=== PATIENT | male | born 1960 | race Caucasian/White ===

== ENCOUNTER 2016-10-11 14:00 | Outpatient (RCR) ==
[2016-08-18 13:54] VITALS: BMI 40.7
--- NOTE | 2016-09-20 14:42 | RS.CXNS ---
Date of scheduled appointment: 09/20/16 Type: Cancel (Patients girlfriend left voicemail to cancel appointment. No reason for cancellation given.)
--- NOTE | 2016-09-22 16:24 | RS.OPPTDN ---
Subjective Date of Note: 09/22/16 Visit #: 23 Date of Evaluation: 06/30/16 Payer Source: Medicaid Treatment Diagnosis: Left knee pain, Left knee weakness, gait abnormality Current Subjective/complaints:: Patient reports he feels stronger with walking in parallel bars and with starting stairs today. Back pain continues to be a problem but he is working on exercises as instructed. Pain Assessment - Pain Description Pain Location: Left knee Pain Description: soreness Current Pain Intensity: mod back pain, min to mod pain in the left LE - Heat/Cryotherapy Treatment: Hot Pack ([id number] to the left knee prior to EX and GT. Patient in sitting. ) Interventions - Exercise/Activities/Manual Therapy Exercises/Activities: 15mins Continued passive stretching left knee flexion and extension. Quad sets. SAQ multiple reps. In sitting, contact relax with passive flexion. Sitting green theraband scap retraction 2s/10reps. Leg press 65# multiple reps and 30# left LE 25reps. In standing, multi-gym station 20# scap retraction 2s/10reps. Gait training [id number] Amb in parallel bars with and without weight-bearing on UE's. Began walking up and over stairs with short and medium heigh steps, 8reps. Standing while working on postural correction. Total minutes of Exercise: EX 15mins, GT 25mins Manual Therapy: NA HOME EXERCISE PROGRAM: In sitting, FAQ, Hip flexion, and pillow/ball squeeze for isometric hip adduction. Quad sets. Passive stretching of extension on chair or coffee table. Standing at handrail for hip abd, hip ext, and ham curl. - Charges Total Direct Minutes: 40mins Total Treatment Time: 55mins Procedures billed for this date of service:: HP, EX, GTx2 Assessment: Patient progressing with gait training and begins stairs today. Patient continues to demonstrate good potential to progress toward independent ambulation and PLOF. Short Term Goals Goal #1: Patient independent and complaint with basic HEP. Goal to be met by: 09/19/16 (100%) Progress towards Goal:: Met Goal #2: Pt able to stand 3 minutes to perform activities in department. Goal to be met by: 09/19/16 (100%) Progress towards Goal:: Met Goal #3: Left knee extension to -10 degrees. Goal to be met by: 09/19/16 (70%) Progress towards Goal:: Progressing Goal #4: Pt able to ambulate 60 feet in department with crutches and CGA of 1. 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 Goal to be met by: 10/13/16 Progress towards goal: Progressing Goal #2: Pt to amb. in community level/unlevel surfaces w/ crutches. Goal to be met by: 10/13/16 Progress towards goal: Progressing Goal #3: Score on LE functional scale improved to 30/80. Goal to be met by: 10/13/16 Progress towards goal: Progressing Goal #4: Pt able to stand to perform all selfcare and ADL's as needed. Goal to be met by: 10/13/16 Progress towards goal: Progressing Plan PLAN OF CARE EXPIRES ON:: 10/13/16 ORDER # VISITS AND/OR THROUGH DATE: 10/13/16 PLAN: Continue Plan of Care (Continue and progress with strengthening and gait training to progress functional activity level.)
--- NOTE | 2016-09-27 15:34 | RS.OPPTDN ---
Subjective Date of Note: 09/27/16 Visit #: 24 Date of Evaluation: 06/30/16 Payer Source: Medicaid Treatment Diagnosis: Left knee pain, Left knee weakness, gait abnormality Current Subjective/complaints:: Patient reports he is using his crutches about half the time to be mobile in his home. He has not been able to go up and down steps yet. He reports that he fatigues easily. Pain Assessment - Pain Description Pain Location: Left knee Pain Description: soreness Current Pain Intensity: mod back pain, min pain in the left LE Interventions - Exercise/Activities/Manual Therapy Exercises/Activities: 25mins Exercise. Continued passive stretching left knee flexion and extension. Quad sets. SAQ multiple reps. Leg press 65# multiple reps. In standing, multi-gym station 20# scap retraction 4s/10reps with short breaks. Gait training [id number] Amb in parallel bars with and without weight- bearing on UE's. In standing, practices forward and backward steps with the right LE with FWB on the left. Walking up and over stairs with short and medium heigh steps, 10reps. Standing while working on postural correction. Total minutes of Exercise: EX 25mins, GT 30mins Manual Therapy: NA HOME EXERCISE PROGRAM: In sitting, FAQ, Hip flexion, and pillow/ball squeeze for isometric hip adduction. Quad sets. Passive stretching of extension on chair or coffee table. Standing at handrail for hip abd, hip ext, and ham curl. - Charges Total Direct Minutes: 55mins Total Treatment Time: 55mins Procedures billed for this date of service:: EX2, GT2 Assessment: Patient progressing with gait in department and with crutches part of the time at home. Patient Education: Home Exercise Program Patient demonstrates compliance with HEP?: Yes Short Term Goals Goal #1: Patient independent and complaint with basic HEP. Goal to be met by: 09/19/16 (100%) Progress towards Goal:: Met Goal #2: Pt able to stand 3 minutes to perform activities in department. Goal to be met by: 09/19/16 (100%) Progress towards Goal:: Met Goal #3: Left knee extension to -10 degrees. Goal to be met by: 09/19/16 (70%) Progress towards Goal:: Progressing Goal #4: Pt able to ambulate 60 feet in department with crutches and CGA of 1. 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 Goal to be met by: 10/13/16 Progress towards goal: Progressing Goal #2: Pt to amb. in community level/unlevel surfaces w/ crutches. Goal to be met by: 10/13/16 Progress towards goal: Progressing Goal #3: Score on LE functional scale improved to 30/80. Goal to be met by: 10/13/16 Progress towards goal: Progressing Goal #4: Pt able to stand to perform all selfcare and ADL's as needed. Goal to be met by: 10/13/16 Progress towards goal: Progressing Plan PLAN OF CARE EXPIRES ON:: 10/13/16 ORDER # VISITS AND/OR THROUGH DATE: 10/13/16 PLAN: Continue Plan of Care
--- NOTE | 2016-09-29 16:37 | RS.OPPTDN ---
Subjective Date of Note: 09/29/16 Visit #: 25 Date of Evaluation: 06/30/16 Payer Source: Medicaid Treatment Diagnosis: Left knee pain, Left knee weakness, gait abnormality Current Subjective/complaints:: Patient reports an increase in back pain with standing and walking today due to change in weather. Continues to report he is increasing ambulation with crutches at home. Pain Assessment - Pain Description Pain Location: Left knee Pain Description: soreness Current Pain Intensity: mod+ back pain, min pain in the left LE Interventions - Exercise/Activities/Manual Therapy Exercises/Activities: 28mins Exercise. Continued passive stretching left knee flexion and extension. Quad sets. SAQ multiple reps. Leg press 65# multiple reps and 30# with left. In standing, multi-gym station 20# scap retraction 4s/ 10reps with short breaks. Gait training [id number]. Amb in parallel bars with and without weight-bearing on UE's. In standing, practices correcting posture. Walking up and over stairs with short and medium heigh steps. Walking in department with crutches with CGA. Total minutes of Exercise: EX 28mins, GT 25mins Manual Therapy: NA HOME EXERCISE PROGRAM: In sitting, FAQ, Hip flexion, and pillow/ball squeeze for isometric hip adduction. Quad sets. Passive stretching of extension on chair or coffee table. Standing at handrail for hip abd, hip ext, and ham curl. - Charges Total Direct Minutes: 53mins Total Treatment Time: 53mins Procedures billed for this date of service:: EX2, GT2 Assessment: Patient continues to increase independence in parallel bars. Back pain limited patient activity today. Short Term Goals Goal #1: Patient independent and complaint with basic HEP. Goal to be met by: 09/19/16 (100%) Progress towards Goal:: Met Goal #2: Pt able to stand 3 minutes to perform activities in department. Goal to be met by: 09/19/16 (100%) Progress towards Goal:: Met Goal #3: Left knee extension to -10 degrees. Goal to be met by: 09/19/16 (70%) Progress towards Goal:: Progressing Goal #4: Pt able to ambulate 60 feet in department with crutches and CGA of 1. Goal to be met by: 09/19/16 (50%) Progress towards Goal:: Progressing Rn Telephone Triage Goals Goal #1: Pt knows HEP and to continue exercises after D/C from therapy. Goal to be met by: 10/13/16 Progress towards goal: Progressing Goal #2: Pt to amb. in community level/unlevel surfaces w/ crutches. Goal to be met by: 10/13/16 Progress towards goal: Progressing Goal #3: Score on LE functional scale improved to 30/80. Goal to be met by: 10/13/16 Progress towards goal: Progressing Goal #4: Pt able to stand to perform all selfcare and ADL's as needed. Goal to be met by: 10/13/16 Progress towards goal: Progressing Plan PLAN OF CARE EXPIRES ON:: 10/13/16 ORDER # VISITS AND/OR THROUGH DATE: 10/13/16 PLAN: Continue Plan of Care
--- NOTE | 2016-10-04 16:33 | RS.OPPTDN ---
Subjective Date of Note: 10/04/16 Visit #: 26 Date of Evaluation: 06/30/16 Payer Source: Medicaid Treatment Diagnosis: Left knee pain, Left knee weakness, gait abnormality Current Subjective/complaints:: Patient reports increased pain and swelling at the left lateral knee today. Reports walking more with crutches in his home. States he can get in and out of bathroom with use of crutches. Pain Assessment - Pain Description Pain Location: Left knee Pain Description: soreness Current Pain Intensity: mod+ back pain, mod pain in the left LE Interventions - Exercise/Activities/Manual Therapy Exercises/Activities: 25mins Exercise. Continued passive stretching left knee flexion and extension. Quad sets. SAQ multiple reps. Leg press 45# multiple reps and 60# 3s/10reps. In standing, multi-gym station 20# scap retraction 4s/ 10reps with short breaks. Gait training [id number]. Amb in parallel bars with and without weight-bearing on UE's. In standing, practices correcting posture and marching in place. Walking up and over stepper board with crutches. Walking in department with crutches with CGA. Total minutes of Exercise: EX 25mins, GT 30mins Manual Therapy: NA HOME EXERCISE PROGRAM: In sitting, FAQ, Hip flexion, and pillow/ball squeeze for isometric hip adduction. Quad sets. Passive stretching of extension on chair or coffee table. Standing at handrail for hip abd, hip ext, and ham curl. - Charges Total Direct Minutes: 55mins Total Treatment Time: 55mins Procedures billed for this date of service:: EX2, GT2 Assessment: Continue to progress with ambulation in parallel bars and with crutches, progressing toward safe and independent. Short Term Goals Goal #1: Patient independent and complaint with basic HEP. Goal to be met by: 09/19/16 (100%) Progress towards Goal:: Met Goal #2: Pt able to stand 3 minutes to perform activities in department. Goal to be met by: 09/19/16 (100%) Progress towards Goal:: Met Goal #3: Left knee extension to -10 degrees. Goal to be met by: 09/19/16 (70%) Progress towards Goal:: Progressing Goal #4: Pt able to ambulate 60 feet in department with crutches and CGA of 1. 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 Goal to be met by: 10/13/16 Progress towards goal: Progressing Goal #2: Pt to amb. in community level/unlevel surfaces w/ crutches. Goal to be met by: 10/13/16 Progress towards goal: Progressing Goal #3: Score on LE functional scale improved to 30/80. Goal to be met by: 10/13/16 Progress towards goal: Progressing Goal #4: Pt able to stand to perform all selfcare and ADL's as needed. Goal to be met by: 10/13/16 (75%) Progress towards goal: Progressing Plan PLAN OF CARE EXPIRES ON:: 10/13/16 ORDER # VISITS AND/OR THROUGH DATE: 10/13/16 PLAN: Continue Plan of Care (Progress toward safe and independent ambulation with crutches in home and community.)
--- NOTE | 2016-10-06 16:35 | RS.OPPTDN ---
Subjective Date of Note: 10/06/16 Visit #: 27 Date of Evaluation: 06/30/16 Payer Source: Medicaid Treatment Diagnosis: Left knee pain, Left knee weakness, gait abnormality Current Subjective/complaints:: Patient reports he feels safer on stairs today. Pain Assessment - Pain Description Pain Location: Left knee Pain Description: soreness Current Pain Intensity: mod+ back pain, mod pain in the left LE Interventions - Exercise/Activities/Manual Therapy Exercises/Activities: Exercise 23mins. Continued passive stretching left knee flexion and extension. Quad sets. SAQ 4#, multiple reps. Leg press 45# multiple reps and 60# 3s/10reps. Green theraband for ham stretch, 3s/10reps. Gait training [id number]. Amb in parallel bars with and without weight-bearing on UE's. Side-stepping. In standing, practices correcting posture and marching in place. Walks over stairs, 5 steps x2reps, with CGA to SBA. Walking up and over stepper board with crutches, multiple reps. Shannon is able to go up and down stepper board once with supervision only. Walking in department with crutches with CGA. Total minutes of Exercise: EX 23mins, GT 35mins Manual Therapy: NA HOME EXERCISE PROGRAM: In sitting, FAQ, Hip flexion, and pillow/ball squeeze for isometric hip adduction. Quad sets. Passive stretching of extension on chair or coffee table. Standing at handrail for hip abd, hip ext, and ham curl. - Charges Total Direct Minutes: 58mins Total Treatment Time: 60mins Procedures billed for this date of service:: EXx2, GTx2 Assessment: Patient continues to improve with gait training in parallel bars and with crutches, including stairs and stepper board. Patient will benefit from progressing independence to be functional at home and in community. Patient Education: Home Exercise Program, Home Safety, Activity Modification Short Term Goals Goal #1: Patient independent and complaint with basic HEP. Goal to be met by: 09/19/16 (100%) Progress towards Goal:: Met Goal #2: Pt able to stand 3 minutes to perform activities in department. Goal to be met by: 09/19/16 (100%) Progress towards Goal:: Met Goal #3: Left knee extension to -10 degrees. Goal to be met by: 09/19/16 (70%) Progress towards Goal:: Progressing Goal #4: Pt able to ambulate 60 feet in department with crutches and CGA of 1. Goal to be met by: 09/19/16 (70%) Progress towards Goal:: Progressing Residential Goals Goal #1: Pt knows HEP and to continue exercises after D/C from therapy. Goal to be met by: 10/13/16 Progress towards goal: Progressing Goal #2: Pt to amb. in community level/unlevel surfaces w/ crutches. Goal to be met by: 10/13/16 Progress towards goal: Progressing Goal #3: Score on LE functional scale improved to 30/80. Goal to be met by: 10/13/16 Progress towards goal: Progressing Goal #4: Pt able to stand to perform all selfcare and ADL's as needed. Goal to be met by: 10/13/16 (75%) Progress towards goal: Progressing Plan PLAN OF CARE EXPIRES ON:: 10/13/16 ORDER # VISITS AND/OR THROUGH DATE: 10/13/16 PLAN: Continue Plan of Care
--- NOTE | 2016-10-11 16:27 | RS.OPPTDN ---
Subjective Date of Note: 10/11/16 Visit #: 28 Date of Evaluation: 06/30/16 Payer Source: Medicaid Treatment Diagnosis: Left knee pain, Left knee weakness, gait abnormality Current Subjective/complaints:: Patient states he is walking with crutches in his home more than 50% of the time. Pain Assessment - Pain Description Pain Location: Left knee Pain Description: soreness Current Pain Intensity: mod+ back pain, min to mod pain in the left LE Interventions - Exercise/Activities/Manual Therapy Exercises/Activities: Exercise 15mins. Continued passive stretching left knee flexion and extension. Standing UE cable pulleys, 10# 20reps. In standing, wand for overhead shoulder flexion 10reps and reaching for 2# ball multiple reps. Leg press 45# 2s/10reps reps and 60# 3s/10reps. Gait training [id number]. Amb in parallel bars with and without weight-bearing on UE's. Side-stepping. Works on postural correction and marching in place. Walking up and over stepper board with crutches, multiple reps. Shannon is able to go up and down stepper board once with supervision only. Walking in department with crutches with SBA. Patient is able to take 4 steps to chair from parallel bars with SBA only. Total minutes of Exercise: EX 15mins, GT 35mins Manual Therapy: NA HOME EXERCISE PROGRAM: In sitting, FAQ, Hip flexion, and pillow/ball squeeze for isometric hip adduction. Quad sets. Passive stretching of extension on chair or coffee table. Standing at handrail for hip abd, hip ext, and ham curl. - Charges Total Direct Minutes: 50mins Total Treatment Time: 50mins Procedures billed for this date of service:: EX, GTx2 Assessment: Patient progressing toward safe and independent with ambulation. Patient has met goal of walking 60' with crutches with CGA. Short Term Goals Goal #1: Patient independent and complaint with basic HEP. Goal to be met by: 09/19/16 (100%) Progress towards Goal:: Met Goal #2: Pt able to stand 3 minutes to perform activities in department. Goal to be met by: 09/19/16 (100%) Progress towards Goal:: Met Goal #3: Left knee extension to -10 degrees. Goal to be met by: 09/19/16 (70%) Progress towards Goal:: Progressing Goal #4: Pt able to ambulate 60 feet in department with crutches and CGA of 1. Goal to be met by: 09/19/16 (100%) Progress towards Goal:: Met Intermediate Goals Goal #1: Pt knows HEP and to continue exercises after D/C from therapy. Goal to be met by: 10/13/16 Progress towards goal: Progressing Goal #2: Pt to amb. in community level/unlevel surfaces w/ crutches. Goal to be met by: 10/13/16 Progress towards goal: Progressing Goal #3: Score on LE functional scale improved to 30/80. Goal to be met by: 10/13/16 Progress towards goal: Progressing Goal #4: Pt able to stand to perform all selfcare and ADL's as needed. Goal to be met by: 10/13/16 (75%) Progress towards goal: Progressing Plan PLAN OF CARE EXPIRES ON:: 10/13/16 ORDER # VISITS AND/OR THROUGH DATE: 10/13/16 PLAN: Continue Plan of Care
--- NOTE | 2016-10-13 15:32 | RS.CXNS ---
Date of scheduled appointment: 10/13/16 Type: Cancel (Patients girlfriend calls to cancel patients appointment today. States he cannot make it to therapy today due to the battery being on his scooter.)
--- NOTE | 2016-10-13 16:12 | RS.QUICKDC ---
Discharge from PT Date of Discharge: 10/13/16 Number of Visits: 28 Reason for Discharge: Patient attended 28 sessions and progressed well with gait training. He was able to walk in department with crutches, including over steps, with SBA. He progressed walking in parallel bars and was able to walk a few steps without assistive device to chair with SBA. He was independent with basic exercises. Patient had to cancel last appointment due to battery on scooter again and could not get to bus. Patient benefitted from treatment and was able to increase his functional independence in his home. Patients POC completed at this time. Discharge at this time.
== END 2016-10-18 ==
PROVIDERS: ATTEND Orthopaedic Surgery
DX: Z96.652 Presence of left artificial knee joint (principal); M25.562 Pain in left knee

== ENCOUNTER 2016-11-29 14:54 | Outpatient (CLI) ==
[2016-08-18 13:54] VITALS: BMI 40.7
[2016-11-29 15:08] LABS: HEMATOCRIT 51.9 % (42.0-52.0); HEMOGLOBIN 17.6 g/dl (14.0-18.0); MEAN CORPUSCULAR HEMOGLOBIN 30.4 pg (27.0-31.0); MEAN CORPUSCULAR HGB CONC 33.9 (31.8-35.4); MEAN CORPUSCULAR VOLUME 89.8 fl (80.0-94.0); RED BLOOD COUNT 5.78 10^6/ul (4.70-6.10); WHITE BLOOD COUNT 18.92 K/ul (4.2-10.2)
[2016-11-29 15:33] LABS: ALBUMIN 3.2 g/dL (3.4-5.0); ALBUMIN/GLOBULIN RATIO 0.78; ANION GAP 14.1; BILIRUBIN,TOTAL 0.4 mg/dL (0.00-1.20); BUN/CREATININE RATIO 15.55; CALCIUM 9.2 mg/dL (8.2-10.2); CREATININE 0.9 mg/dL (0.60-1.10); POTASSIUM 4.1 mmol/L (3.5-5.1); TOTAL PROTEIN 7.3 g/dL (6.4-8.2)
== END 2016-11-29 14:55 | disposition home or self-care (01) ==
LOC: LAB 14:54
PROVIDERS: ATTEND Urology
DX: N50.811 Right testicular pain (principal)
CPT/HCPCS: 36415; 80053; 85027; 87086

== ENCOUNTER 2016-12-06 13:24 | Outpatient (CLI) ==
[2016-08-18 13:54] VITALS: BMI 40.7
[2016-12-06 13:50] LABS: BASOPHILS % (AUTO) 0.7 % (0.0-3.0); EOSINOPHILS # (AUTO) 0.2 K/ul (0.0-0.7); EOSINOPHILS % (AUTO) 3.4 % (0.0-7.0); HEMATOCRIT 50.1 % (42.0-52.0); HEMOGLOBIN 17.2 g/dl (14.0-18.0); IMMATURE GRANULOCYTE % (AUTO) 0.7 % (0.0-5.0); LYMPHOCYTES # (AUTO) 2.2 K/uL (0.60-3.4); LYMPHOCYTES % (AUTO) 35.8 (10.0-50.0); MEAN CORPUSCULAR HEMOGLOBIN 29.8 pg (27.0-31.0); MEAN CORPUSCULAR HGB CONC 34.3 (31.8-35.4); MEAN CORPUSCULAR VOLUME 86.8 fl (80.0-94.0); MONOCYTES # (AUTO) 0.6 K/uL (0.4-2.0); MONOCYTES % (AUTO) 9.8 (0-10); NEUTROPHILS # (AUTO) 3.1 K/ul (2.0-6.9); NEUTROPHILS % (AUTO) 49.6; PLATELET COUNT 206 10^3/uL (140-440); RED BLOOD COUNT 5.77 10^6/ul (4.70-6.10); WHITE BLOOD COUNT 6.15 K/ul (4.2-10.2)
== END 2016-12-06 13:25 | disposition home or self-care (01) ==
LOC: LAB 13:24
PROVIDERS: ATTEND Physician Assistant Medical
DX: N45.3 Epididymo-orchitis (principal)
CPT/HCPCS: 36415; 85025

== ENCOUNTER 2017-02-01 11:12 | Outpatient (CLI) ==
[2016-08-18 13:54] VITALS: BMI 40.7
--- NOTE | 2017-02-01 11:57 | DI ---
EXAM: Radiographs, thoracic spine HISTORY: Thoracic degeneration. COMPARISON: None available. Chest radiograph 08/18/2016, 11/02/2009. TECHNIQUE: Three views. FINDINGS: Multiple mild thoracic vertebral compression deformities noted, which demonstrate smooth margins. Alignment is normal. No subluxation identified. Adjacent soft tissues are unremarkable. IMPRESSION: Multiple mild thoracic vertebral compression deformities, which are likely old although age indeterm inate.
--- NOTE | 2017-02-01 11:59 | DI ---
EXAM: CERVICAL SPINE, 3 VIEWS HISTORY: Cervical degeneration. FINDINGS: Cervical spine open mouth, frontal and lateral views. No comparison. Mild degenerative f acet disease with mild anterior osteophytic spurring, the latter mainly at C5/C6. No significant lo ss of intervertebral disc space height. No spondylolisthesis, fracture or loss of vertebral body he ight. No scoliosis or fracture. IMPRESSION: Mild degenerative changes of the cervical spine.
--- NOTE | 2017-02-01 12:00 | DI ---
EXAM: Lumbar spine three views HISTORY: Lumbar degeneration FINDINGS: Compared to 03/10/2008. The bones appear demineralized. There is mild to moderate diffu se degenerative endplate disease. Severe degenerative disc disease L5/S1. Moderate facet arthropat hy lower spine. Subtle scoliosis convex to the left. There is mild to moderate bilateral sacroilia c joint arthropathy. Findings appear similar to that seen previously with slight progression especi ally of the lower facet arthropathy. IMPRESSION: Moderate degenerative changes of the spine slightly progressed since previous exam. No notable acut e fracture or subluxation.
== END 2017-02-01 11:13 | disposition home or self-care (01) ==
LOC: RAD 11:12
PROVIDERS: ATTEND Pain Medicine Interventional Pain Medicine
DX: M47.817 Spondylosis without myelopathy or radiculopathy, lumbosacral region (principal); M47.816 Spondylosis without myelopathy or radiculopathy, lumbar region; M50.31 Other cervical disc degeneration, high cervical region; M51.34 Other intervertebral disc degeneration, thoracic region; M51.35 Other intervertebral disc degeneration, thoracolumbar region

== ENCOUNTER 2017-03-13 14:26 | Emergency (ER) ==
[2017-03-13 14:30] VITALS: BP 135/99; TEMP 99.1; BMI 39.1
--- NOTE | 2017-03-13 15:17 | DI ---
Exam: Three x-rays of the right elbow. Comparison: Left elbow x-rays performed 04/11/2011. Reason for exam: Lateral condylar pain. FINDINGS: There are multiple calcifications seen in the region of the olecranon. No acute fracture or malalignment. No secondary soft tissue changes are seen to suggest an occult injury. Impression: 1. Calcifications seen in the region of the olecranon. The differential is wide and includes chron ic olecranon bursitis, previous trauma, or CPPD. 2. No acute fracture is seen.
--- NOTE | 2017-03-13 16:17 | ED.PDOC ---
General ED Provider: Dr. JORGE LUIS FRANCO Chief Complaint: Elbow Pain/Injury Stated Complaint: right elbow pain Time Seen by Physician: 14:30 Mode of Arrival: Walk-In Information Source: Patient Exam Limitations: No limitations Primary Care Provider: MELISSA LEWIS Nursing and Triage Documentation Reviewed and Agree: Yes Musculoskeletal Complaint Exam - Elbow Pain Complaint/Exam Mechanism of Injury: Reports: No known trauma Onset/Duration: 1 day Symptoms Are: Still present Initial Severity: Moderate Current Severity: Mild Location: Reports: Discrete Character: Reports: Aching Alleviating: Reports: Rest Aggravating: Reports: Movement Associated Signs and Symptoms: Denies: Swelling, Redness, Bruising, Fever, Weakness, Numbness, Tingling Related History: Reports: Similar episode Related Surgical History: Reports: None Tenderness: Present: Lateral Condyle Limited Range of Motion: Present: Flexion, Extension, Pronation, Supination Differential Diagnoses: Closed Fracture, Joint Effusion, Sprain, Strain, Bursitis Review of Systems - Review Of Systems Constitutional: Reports: No symptoms Eyes: Reports: No symptoms Ears, Nose, Mouth, Throat: Reports: No symptoms Respiratory: Reports: No symptoms Cardiac: Reports: No symptoms GI: Reports: No symptoms : Reports: No symptoms Musculoskeletal: Reports: Joint pain (right elbow) Skin: Reports: No symptoms Neurological: Reports: No symptoms Endocrine: Reports: No symptoms Hematologic/Lymphatic: Reports: No symptoms All Other Systems: Reviewed and Negative Past Medical History - Past Medical History Endocrine: Reports: None Cardiovascular: Reports: CAD, Hypertension, A-Fib Respiratory: Reports: None Hematological: Reports: None Gastrointestinal: Reports: None Genitourinary: Reports: None Neuro/Psych: Reports: None Musculoskeletal: Reports: None Cancer: Reports: None (RIGHT FEMUR 30 YEARS AGO DONYA TO BONE DISEASE) Other Pertinent Past Medical History: Osteogenesis Imperfector - Surgical History General Surgical History: Reports: Adenoidectomy, Stent, Orthopedic, Other - Family History Family History: Reports: None - Social History Smoking Status: Former smoker Hx Substance Use: Yes (ALCOHOL IN PAST) Alcohol Screening: None Physical Exam - Physical Exam Appearance: Well-appearing, No pain distress, Well-nourished Eyes: MEE, EOMI, Conjunctiva clear ENT: Ears normal, Nose normal, Oropharynx normal Respiratory: Airway patent, Breath sounds clear, Breath sounds equal, Respirations nonlabored Cardiovascular: RRR, Pulses normal, No rub, No murmur GI/: Soft, Nontender, No masses, Bowel sounds normal, No Organomegaly Musculoskeletal: Limited ROM (right elbow) Skin: Warm, Dry, Normal color Neurological: Sensation intact, Motor intact, Reflexes intact, Cranial nerves intact, Alert, Oriented Psychiatric: Affect appropriate, Mood appropriate Interpretation - Radiology Interpretation Radiology Interpretation By: Radiologist Radiology Results: No acute changes Critical Care Note - Critical Care Note Total Time (mins): 0 Course - Course Orders, Labs, Meds: Orders Category Date Time Status ELBOW, RIGHT MIN 3 VIEWS Stat RADS 03/13/17 14:45 Completed Vital Signs: Temp Pulse Resp BP Pulse Ox 03/13/17 14:26 99.1 F 70 16 135/99 H 93 L Departure - Departure Time of Disposition: 16:17 (with eduardo at bedside went over film provided a copy of report and imaging requested the pt to see his doctor. MRI STRESSED PT HAS HIS OWN PAIN MEDS ) Disposition: HOME SELF-CARE Discharge Problem: Elbow joint pain Instructions: Arthralgia (ED), Elbow Sprain (ED) Condition: Good Pt referred to PMD for follow-up: No Allergies/Adverse Reactions: Allergies No Known Allergies Allergy (Verified 03/13/17 14:32) Home Medications: Ambulatory Orders Aspirin [Aspirin Chewable] 81 mg PO DAILYWM 05/15/13 Diltiazem HCl [Cardizem] 90 mg PO BID 05/15/13 Lorazepam [Ativan] 1 mg PO TID PRN 05/15/13 Metoprolol Tartrate [Lopressor] 25 mg PO DAILY 05/15/13 Ranitidine HCl [Zantac] 150 mg PO QDAC PRN 05/15/13 Potassium Chloride [K-Dur] 20 meq PO BID 08/10/13 Dronedarone HCl [Multaq] 400 mg PO BID 04/18/14 Carisoprodol [Soma] 250 mg PO TID 07/29/16 Morphine Sulfate [Ms Contin] 20 mg PO Q12HR 03/13/17
== END 2017-03-13 16:30 | disposition home or self-care (01) ==
LOC: ED 14:26
DX: M25.521 Pain in right elbow (principal)
CPT/HCPCS: 99282

== ENCOUNTER 2017-08-01 08:38 | Emergency (ER) ==
[2017-08-01 08:47] VITALS: BP 149/102; TEMP 100; BMI 40.7
--- NOTE | 2017-08-01 09:13 | ED.PDOC ---
General ED Provider: Dr. RAMON ARCE JR Chief Complaint: Chest Wall Injury/Pain Stated Complaint: coughed last week pain pop rt ribs-- pain meds unable to breathe lying down--pain to rib-- yellow mucous--relieved sitting --md last week cxr ordered 100 95 20 96% 149/102 06/27. ALCOHOL IN PAST on MS contin on Soma Time Seen by Physician: 09:13 Mode of Arrival: Walk-In Information Source: Patient Exam Limitations: No limitations Primary Care Provider: MELISSA LEWIS Nursing and Triage Documentation Reviewed and Agree: No Review of Systems - Review Of Systems Constitutional: Reports: Chills Eyes: Reports: No symptoms Ears, Nose, Mouth, Throat: Reports: No symptoms Respiratory: Reports: Cough, Short of air, Other Cardiac: Reports: Chest pain (right costal margin to 9th rib) GI: Reports: No symptoms : Reports: No symptoms Musculoskeletal: Reports: Other Skin: Reports: No symptoms Neurological: Reports: No symptoms Endocrine: Reports: No symptoms Hematologic/Lymphatic: Reports: No symptoms All Other Systems: Other Past Medical History - Past Medical History Endocrine: Reports: None Cardiovascular: Reports: CAD, Hypertension, A-Fib, Other (SVT before on meds ) Respiratory: Reports: None Hematological: Reports: None Gastrointestinal: Reports: None Genitourinary: Reports: None Neuro/Psych: Reports: None Musculoskeletal: Reports: None, Other (RIGHT FEMUR 30 YEARS AGO DUE TO BONE DISEASE) Cancer: Reports: None (RIGHT FEMUR 30 YEARS AGO DONYA TO BONE DISEASE) Other Pertinent Past Medical History: Osteogenesis Imperfecta - Surgical History General Surgical History: Reports: Adenoidectomy (19 yr old), Stent (HEART STINTS X2 2009,2011), Orthopedic ( left knee replacement 2013, then 1/2 left knee replacement 04/2016), Other - Family History Family History: Reports: None - Social History Smoking Status: Former smoker Hx Substance Use: Yes (ALCOHOL IN PAST) Alcohol Screening: None Physical Exam - Physical Exam Appearance: Well-appearing, Obese Ill-appearing: Mild Pain Distress: Mild Eyes: MEE, EOMI, Conjunctiva clear ENT: Ears normal, Nose normal, Oropharynx normal Neck: Supple Respiratory: Airway patent (tender right costal margin to spine spine nontender tender posterior 9th rib area), Breath sounds diminished, Rhonchi Cardiovascular: RRR, Pulses normal, No rub, No murmur GI/: Soft, Nontender, No masses, Bowel sounds normal, No Organomegaly Musculoskeletal: Normal strength, ROM intact, No edema, No calf tenderness ( right leg chronic shortening, barrell chest) Skin: Warm, Dry, Normal color Neurological: Sensation intact, Motor intact, Reflexes intact, Cranial nerves intact, Alert, Oriented Psychiatric: Affect appropriate, Mood appropriate Interpretation - Radiology Interpretation Radiology Interpretation By: Radiologist Radiology Results: Negative Exam Interpreted: CXR, Other (ribs without fracture) - EKG Interpretation Time of EKG #1: 09:15 Rate: Normal Rhythm: Sinus Ectopy: None [place]: NL ST Segment: Other (evidence past IMI) Interpretation: nonacute Critical Care Note - Critical Care Note Total Time (mins): 0 Course - Course Hematology/Chemistry: 08/01/17 10:23 08/01/17 10:23 Orders, Labs, Meds: Lab Review 08/01/17 08/01/17 08/01/17 10:23 10:23 10:23 WBC 7.59 RBC 5.43 Hgb 16.6 Hct 46.9 MCV 86.4 MCH 30.6 MCHC 35.4 RDW Coeff of Allyson 13.4 Plt Count 196 Immature Gran % (Auto) 0.4 Neut % (Auto) 70.6 Lymph % (Auto) 20.4 [place] % (Auto) 7.0 Eos % (Auto) 1.3 Baso % (Auto) 0.3 Immature Gran # (Auto) 0.0 Neut # 5.4 Lymph # 1.6 [place] # 0.5 Eos # 0.1 Baso # 0.0 Sodium 140 Potassium 3.8 Chloride 109 H Carbon Dioxide 22 Anion Gap 12.8 BUN 15 Creatinine 0.73 Estimated GFR (MDRD) 111.00 BUN/Creatinine Ratio 20.54 Glucose 123 H Calcium 9.1 Total Bilirubin 0.32 AST 18 ALT 29 Alkaline Phosphatase 83 Total Creatine Kinase 138 CK-MB (CK-2) 1.4 CK-MB (CK-2) % 1.31457 Troponin I 0.0110 B-Natriuretic Peptide 12 Total Protein 7.6 Albumin 3.6 Globulin 4.0 Albumin/Globulin Ratio 0.90 Orders Category Date Time Status EKG-(ED ONLY) Stat CARDIO 08/01/17 09:08 Completed B-TYPE NATRIURETIC PEPTIDE Stat LAB 08/01/17 10:23 Completed BLOOD CULTURE Stat LAB 08/01/17 10:23 Received CBC W/ AUTO DIFF Stat LAB 08/01/17 10:23 Completed COMPREHENSIVE METABOLIC PANEL Stat LAB 08/01/17 10:23 Completed CREATINE KINASE Stat LAB 08/01/17 10:23 Completed TROPONIN I Stat LAB 08/01/17 10:23 Completed Meperidine HCl/Pf [Demerol 25 mg/ml Syringe] MEDS 08/01/17 10:48 Discontinued 25 mg IM ONCE STA Promethazine HCl [Phenergan 25 mg/ml Vial] MEDS 08/01/17 10:48 Discontinued 25 mg IM ONCE STA CHEST, 2 VIEWS PA & LAT Stat RADS 08/01/17 09:08 Completed RIBS, UNILATERAL RIGHT Stat RADS 08/01/17 09:09 Completed Medications Discontinued Medications Generic Name Dose Route Start Last Admin Trade Name Freq PRN Reason Stop Dose Admin Meperidine HCl 25 mg 08/01/17 10:48 08/01/17 11:02 Demerol 25 Mg/Ml Syringe IM 08/01/17 10:49 25 mg ONCE STA Administration Promethazine HCl 25 mg 08/01/17 10:48 08/01/17 11:03 Phenergan 25 Mg/Ml Vial IM 08/01/17 10:49 25 mg ONCE STA Administration Vital Signs: Temp Pulse Resp BP Pulse Ox 08/01/17 08:39 100 F H 95 H 20 149/102 H 96 Departure - Departure Time of Disposition: 12:02 Disposition: HOME SELF-CARE Discharge Problem: Chest wall pain, Chest injury Instructions: Muscle Strain (ED), Thoracic Pain (ED) Condition: Good Pt referred to PMD for follow-up: Yes Additional Instructions: rib strain will decrease usual breathing, need to cough deeply twice a day given history antibiotic should be helpful pain will resolve gradually recheck PMD one week may use Met[place] sparingly no refills return if fever over 101.0 or if worsening Prescriptions: Hydrocodone Bit/Acetaminophen [[place] 5-325] 1 - 2 tab PO Q6HR PRN #12 tablet PRN Reason: pain Sulfamethoxazole/Trimethoprim [Bactrim Ds 800/160 mg] 1 tab PO Q12HR #14 tablet Allergies/Adverse Reactions: Allergies No Known Allergies Allergy (Verified 08/01/17 08:48) Home Medications: Ambulatory Orders Aspirin [Aspirin Chewable] 81 mg PO DAILYWM 05/15/13 Diltiazem HCl [Cardizem] 90 mg PO BID 05/15/13 Lorazepam [Ativan] 1 mg PO TID PRN 05/15/13 Metoprolol Tartrate [Lopressor] 25 mg PO DAILY 05/15/13 Ranitidine HCl [Zantac] 150 mg PO QDAC PRN 05/15/13 Potassium Chloride [K-Dur] 20 meq PO BID 08/10/13 Dronedarone HCl [Multaq] 400 mg PO BID 04/18/14 Carisoprodol [Soma] 250 mg PO TID 07/29/16 Morphine Sulfate [Ms Contin] 20 mg PO Q12HR 03/13/17 Hydrocodone Bit/Acetaminophen [[place] 5-325] 1 - 2 tab PO Q6HR PRN #12 tablet Sulfamethoxazole/Trimethoprim [Bactrim Ds 800/160 mg] 1 tab PO Q12HR #14 tablet 08/01/17
--- NOTE | 2017-08-01 09:47 | DI ---
EXAM: CHEST FRONTAL AND LATERAL VIEWS HISTORY: Cough, right-sided chest pain. COMPARISON: 10/19/2015 FINDINGS: Heart size and mediastinal contour remain within normal limits. No acute infiltrates. Normal vascularity with no pleural fluid or pneumothorax. The bony thorax has no acute finding. IMPRESSION: No acute process.
--- NOTE | 2017-08-01 09:59 | DI ---
EXAM: RIGHT RIBS HISTORY: Cough, rib pain FINDINGS: Right ribs four view. No displaced rib fracture is identified. No bony destruction, pneum othorax or soft tissue finding. IMPRESSION: No displaced rib fracture seen.
[2017-08-01 10:41] LABS: BASOPHILS % (AUTO) 0.3 % (0.0-3.0); EOSINOPHILS # (AUTO) 0.1 K/ul (0.0-0.7); EOSINOPHILS % (AUTO) 1.3 % (0.0-7.0); HEMATOCRIT 46.9 % (42.0-52.0); HEMOGLOBIN 16.6 g/dl (14.0-18.0); IMMATURE GRANULOCYTE % (AUTO) 0.4 % (0.0-5.0); LYMPHOCYTES # (AUTO) 1.6 K/uL (0.60-3.4); LYMPHOCYTES % (AUTO) 20.4 (10.0-50.0); MEAN CORPUSCULAR HEMOGLOBIN 30.6 pg (27.0-31.0); MEAN CORPUSCULAR HGB CONC 35.4 (31.8-35.4); MEAN CORPUSCULAR VOLUME 86.4 fl (80.0-94.0); MONOCYTES # (AUTO) 0.5 K/uL (0.4-2.0); NEUTROPHILS # (AUTO) 5.4 K/ul (2.0-6.9); NEUTROPHILS % (AUTO) 70.6; PLATELET COUNT 196 10^3/uL (140-440); RED BLOOD COUNT 5.43 10^6/ul (4.70-6.10); WHITE BLOOD COUNT 7.59 K/ul (4.2-10.2)
[2017-08-01] MEDS ORDERED: DEMEROL 25 MG/ML SYRINGE IM STA (10:48)
[2017-08-01] MEDS ORDERED: PHENERGAN 25 MG/ML VIAL IM STA (10:48)
[2017-08-01 11:07] LABS: ALBUMIN 3.6 g/dL (3.4-5.0); ALBUMIN/GLOBULIN RATIO 0.9; ANION GAP 12.8; BILIRUBIN,TOTAL 0.32 mg/dL (0.00-1.20); BUN/CREATININE RATIO 20.54; CALCIUM 9.1 mg/dL (8.2-10.2); CREATININE 0.73 mg/dL (0.60-1.10); POTASSIUM 3.8 mmol/L (3.5-5.1); TOTAL PROTEIN 7.6 g/dL (6.4-8.2); TROPONIN I 0.011 ng/ml (0.0000-0.4000)
[2017-08-01 11:25] LABS: CREATINE KINASE MB 1.4 ng/ml (0.0-3.6)
== END 2017-08-01 12:10 | disposition home or self-care (01) ==
LOC: ED 08:38
DX: S29.019A Strain of muscle and tendon of unspecified wall of thorax, initial encounter (principal); R07.89 Other chest pain; B95.7 Other staphylococcus as the cause of diseases classified elsewhere; R06.02 Shortness of breath; R05 Cough; I25.10 Atherosclerotic heart disease of native coronary artery without angina pectoris; I10 Essential (primary) hypertension; Z95.5 Presence of coronary angioplasty implant and graft; Z79.899 Other long term (current) drug therapy
CPT/HCPCS: 36415; 80053; 82550; 82553; 83880; 84484; 85025; 87040; 87070; 87186; 93005; 93010; 96372; 99283

== ENCOUNTER 2018-01-11 15:22 | Outpatient (CLI) ==
--- NOTE | 2018-01-11 16:17 | DI ---
EXAM: Two views of the chest. History: Cough and hemoptysis. Comparison: Chest radiograph 07/22/2017 Findings: Heart size is within normal limits. No focal consolidation. No appreciable pleural fluid and no pneumothorax. There may be bronchial wall thickening. No acute osseous abnormalities. Party Supply Specialist ildefonso compression deformities again seen within the thoracic spine. Impression: Suspect bronchial wall thickening but there is no consolidated pneumonia.
== END 2018-01-11 15:23 | disposition home or self-care (01) ==
LOC: RAD 15:22
PROVIDERS: ATTEND Physician Assistant
DX: R04.2 Hemoptysis (principal)

== ENCOUNTER 2018-02-09 11:20 | Outpatient (RCR) ==
--- NOTE | 2018-02-09 15:56 | RS.OPPTEV2 ---
Date of Note: 02/09/18 Visit #: 1 Date of Evaluation: 02/09/18 Payer Source: Medicaid Treatment Diagnosis: Left knee pain, LE and trunk weakness, gait difficulty History of Condition/Mechanism of Injury:: Mr. Dowd has a history of difficulty with mobility and limited ambulation due to repeated injuries and fractures due to having Osteogenesis Imperfecta. Reports he is going to be moving to a more accessible, safe living environment where he will be able to safely progress with ambulation. Prior Level of Function.....Patient was independent with: ADL's, Self Care, Caregiving, Ambulation/Mobility, Community Integration/Access Level of Function: Currently uses a Power chair in his home and out in the community for transportation. States the powerchair has been safer for him to use in his current living situation. He is able to transfer independently to and from his powerchair. He can stand and ambulate very short distances in the home. Functional Limitations: Sleep, Self Care, ADL's, Reaching, Pushing, Pulling, Lifting, Carrying, Standing, Bending, Squatting, Ambulation, Community Access/ Integration Current Subjective/complaints:: Mr. Dowd states he wants to walk. He wants to get rid of his powerchair and hopes to find a job. Reports the left continues to give him pain. Reports most of the knee pain in on the medial aspect of the joint. States the pain and stability of the knee varies each time he is on his feet. He has a walker at home, but he prefers to use crutches. He would like to ambulate with just a straight cane. Reports constant burngin in the toes of the left foot. States the left toes are hypersensitive. He has been going to the gym for 2-3 weeks to strengthen his arms and to lose weight. States he has gained 50 lbs since he has quit smoking. He currently has a four year old grandchild in his home. States he is unable to walk if his grandchild is around because he is too afraid that he will cause him to fall. He will only attempt short distances if the grandchild is asleep. He has difficulty maintaining a standing position to complete ADL's such as shaving, dressing, etc. He feels this is his opportunity to regain his ability to walk and gain more functional independence. Treatment Side (optional): Left Medical History Medical History: Hypertension, COPD, Arthritis, Emphysema Medical History Comments:: Osteogenesis imperfecta, Multiple fractures:6 previous fractures to the left LE, 22 fractures to the right LE. Surgical pinning of bilateral hip joints. Left RTC injury. Left TKA 07/30/14,Patient underwent left TKA on 05/18/16. Smoking Status: Former smoker (quit recently) Hx Home Medications: Aspirin,diltiazem,metoprolol,morphine Er 15 mg Patient's Goals: His goal is to ambulate functional distances independently. Pain Assessment - Pain Description Pain Location: left knee Pain Description: Burning, Sharp, Aching Current Pain Intensity: 8/10 Worst Pain Intensity: 10/10 Functional Outcome Measure LE Functional Scale: 9 (80=88.75% impairment) - G Codes & Severity Modifier G Codes & Modifier: NA Source of G Code score: NA Observation - Observation Inspection: Patient presents to department via power wheelchair. He presents with straight cane. Right shoe is built up significantly for leg length discrepancy. Presents with neoprene elbow supports bilaterally. Posture: Forward Head, Rounded Shoulders, Decreased Lumbar Lordosis Comments: Slight flexion maintained at bilateral hips in standing. Gait - Gait Pattern Gait Comments: Patient ambulates with CGA of one and a straight cane in the right hand, 30 feet before having to sit down due to left knee and low back pain. During ambulation, he exhibits bilateral trunk lean with LE advancement. Demonstrates decreased bilateral hip and knee flexion during swing phase. Stance phase on the left LE is less than the right. Slows down and is more unsteady when turning around. Transfers sit to stand independently from power chair. General Muscle Strength: Trunk strength 4/5. - Left Knee ROM Left Knee Extension: -22 degrees from full extension Left Knee Flexion: 60 (degrees actively) Knee ROM Limitations: Soft Tissue Tightness, Contracture - Left Knee Strength Left Knee Extension: 4- Good- Left Knee Flexion: 4- Good- Comments: Left hip 4/5 throughout. - Right Knee Strength Comments: Right hip 4/5 throughout. Sensation - Sensation Comments: Reports toes of the left foot are hypersensitive and states they burn constantly. Reports intact sensation to light touch to bilateral feet during evaluation. Balance - Sitting Balance Static Sitting Balance: Normal Dynamic Sitting Balance: Normal - Standing Balance Static Standing Balance: Fair Dynamic Standing Balance: Fair (+) Interventions - Exercise/Activities/Manual Therapy Exercises/Activities: NA Manual Therapy: NA HOME EXERCISE PROGRAM: NA - Charges Timed Code Treatment Minutes: NA Total Treatment Time: 55 mins Procedures billed for this date of service:: EVAL Med EVALUATION COMPLEXITY LEVEL EVALUATION COMPLEXITY LEVEL: HISTORY: Medium (Osteogenesis imperfecta, Multiple fractures:6 previous fractures to the left LE, 22 fractures to the right LE. Surgical pinning of bilateral hip joints. Left RTC injury. Left TKA 07/30/14, Patient underwent left TKA on 05/18/16.), EXAM OF BODY SYSTEMS: Medium (ROM, MS, balance, sensation, pain in left knee and back), CLINICAL PRESENTATION: Medium, CLINICAL DECISION MAKING: Medium Assessment Assessment: Patient presents to therapy with diagnosis of Osteogenesis Imperfecta and gait difficulty. He reports wanting to be more independent with his gait and functional ability. He presents with limited functional ambulation due to left knee pain, back pain, and weakness. He shows potential to become more independent with his ambulation and progress away from the power wheelchair with skilled therapy. Patient Education: Education of diagnosis, Body/Joint mechanics, Home Safety, Activity Modification, Education of Plan of Care Rehab Potential: Good Short Term Goals Goal #1: Patient independent and complaint with basic HEP. Goal to be met by: 02/23/18 Goal #2: Standing static balance improved to Fair +. Goal to be met by: 02/23/18 Goal #3: Bilateral hip strength 4+/5. Goal to be met by: 02/23/18 Goal #4: Pt able to ambulate [address] cane and CGA of 1. Goal to be met by: 02/23/18 (100%) Aromatherapist Goals Goal #1: Pt knows HEP and to continue exercises after D/C from therapy. Goal to be met by: 03/23/18 Goal #2: Pt to amb. functional distances with st. cane and good safety. Goal to be met by: 03/23/18 Goal #3: Score on LE functional scale improved to 29/80. Goal to be met by: 03/23/18 Goal #4: Pt able to stand to perform all selfcare and light ADL's as needed. Goal to be met by: 03/23/18 Plan - Treatment to be Provided Procedures: Therapeutic Exercises, Therapeutic Activity, Gait Training, Neuromuscular Rehab, Manual Therapy, Patient Education Modalities: Electrical Stimulation, Class IV Laser, Cryotherapy, Hot Packs Other:: Modalities if necessary for left knee pain/ROM. Main focus to be on exercise/gait training. - Treatment Plan Frequency: 3 X week Duration: 6 weeks ORDER # VISITS AND/OR THROUGH DATE: 03/23/18 - Treatment Code (1) Gait difficulty Code(s): R26.9 - UNSPECIFIED ABNORMALITIES OF GAIT AND MOBILITY Comments: R26.9 (2) Left knee pain Code(s): M25.562 - PAIN IN LEFT KNEE Qualifiers: Chronicity: chronic Qualified Code(s): M25.562 - Pain in left knee; G89.29 - Other chronic pain (3) Generalized muscle weakness Code(s): M62.81 - MUSCLE WEAKNESS (GENERALIZED) Comments: Bilateral LE hip weakness (4) Osteogenesis imperfecta Code(s): Q78.0 - OSTEOGENESIS IMPERFECTA Comments: Q78.0
== END 2018-02-15 23:59 | disposition short-term general hospital (02) ==
DX: Q78.0 Osteogenesis imperfecta (principal)

== ENCOUNTER 2018-03-03 14:47 | Emergency (ER) ==
[2018-03-03 14:51] VITALS: BP 130/89; TEMP 98.7; BMI 42.3
--- NOTE | 2018-03-03 16:23 | ED.PDOC ---
General ED Provider: Dr. 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 Ran out due to being in the hospital with family members. has an Apt in 3 weeks. Unable to tolorate acitivity without pain medication due to his chornic condition. Time Seen by Physician: 16:05 Mode of Arrival: Walk-In Information Source: Patient Primary Care Provider: MELISSA LEWIS Nursing and Triage Documentation Reviewed and Agree: Yes Reviewed sepsis parameters & appropriate labs ordered?: No System Inflammatory Response Syndrome: Not Applicable Sepsis Protocol: For patient's 13 years and over: Temp is 96.8 and below OR 101 and greater Pulse >90 BPM Resp >20/minute Acutely Altered Mental Status Are patient's symptoms suggestive of a new infection, such as: -Pneumonia -Skin, Soft Tissue -Endocarditis -UTI -Bone, Joint Infection -Implantable Device -Acute Abdominal Infection -Wound Infection -Meningitis -Blood Stream Catheter Infection -Unknown Review of Systems - Review Of Systems Constitutional: Reports: No symptoms Respiratory: Reports: No symptoms Cardiac: Reports: No symptoms GI: Reports: No symptoms Musculoskeletal: Reports: Back pain, Joint pain, Muscle pain All Other Systems: Reviewed and Negative Past Medical History - Past Medical History Endocrine: Reports: None Cardiovascular: Reports: CAD, Hypertension, A-Fib, Other (SVT before on meds ) Respiratory: Reports: None Hematological: Reports: None Gastrointestinal: Reports: None Genitourinary: Reports: None Neuro/Psych: Reports: None Musculoskeletal: Reports: None, Other (RIGHT FEMUR 30 YEARS AGO DUE TO BONE DISEASE) Cancer: Reports: None (RIGHT FEMUR 30 YEARS AGO DONYA TO BONE DISEASE) Other Pertinent Past Medical History: Osteogenesis Imperfecta - Surgical History General Surgical History: Reports: Adenoidectomy (19 yr old), Stent (HEART STINTS X2 2009,2011), Orthopedic ( left knee replacement 2013, then 1/2 left knee replacement 04/2016), Other - Family History Family History: Reports: None - Social History Smoking Status: Former smoker Hx Substance Use: Yes (ALCOHOL IN PAST) Alcohol Screening: None Physical Exam - Physical Exam Appearance: Ill-appearing Pain Distress: Moderate Neck: Supple Respiratory: Airway patent, Breath sounds clear, Breath sounds equal, Respirations nonlabored Cardiovascular: RRR, Pulses normal, No rub, No murmur GI/: Soft, Nontender, No masses, Bowel sounds normal, No Organomegaly Musculoskeletal: Limited ROM (with multiple deformities ) Skin: Warm, Dry Neurological: Sensation intact, Motor intact, Alert, Oriented Psychiatric: Anxious Critical Care Note - Critical Care Note Total Time (mins): 0 Course - Course Vital Signs: Temp Pulse Resp BP Pulse Ox 03/03/18 14:47 98.7 F 83 16 130/89 95 Departure - Departure Time of Disposition: 16:20 Disposition: HOME SELF-CARE Discharge Problem: Chronic pain disorder, Osteogenesis imperfecta Instructions: Chronic Pain (ED) Condition: Stable Pt referred to PMD for follow-up: Yes IPMP verified?: No (Given only 7 day supply ) Additional Instructions: Follow up with PCP or Pain management clinic in 3-5 days Take Medications as prescribed Take over the counter pain medication. Prescriptions: Hydrocodone/Acetaminophen [[place] 10-325 Tablet] 1 each PO TID #21 tablet Allergies/Adverse Reactions: Allergies No Known Allergies Allergy (Verified 03/03/18 14:51) Home Medications: Ambulatory Orders Aspirin [Aspirin Chewable] 81 mg PO DAILYWM 05/15/13 Diltiazem HCl [Cardizem] 90 mg PO BID 05/15/13 Potassium Chloride [K-Dur] 20 meq PO BID 08/10/13 Dronedarone HCl [Multaq] 400 mg PO BID 04/18/14 Carisoprodol [Soma] 250 mg PO BID 07/29/16 Morphine Sulfate [Ms Contin] 20 mg PO Q12HR 03/13/17 Hydrocodone/Acetaminophen [[place] 10-325 Tablet] 1 each PO TID #21 tablet Disposition Discussed With: Patient
== END 2018-03-03 16:31 | disposition home or self-care (01) ==
LOC: ED 14:47
DX: G89.29 Other chronic pain (principal); Q78.0 Osteogenesis imperfecta
CPT/HCPCS: 99282

== ENCOUNTER 2018-03-12 14:00 | Outpatient (RCR) ==
--- NOTE | 2018-02-16 16:26 | RS.OPPTDN ---
Subjective Date of Note: 02/16/18 Visit #: 2 Date of Evaluation: 02/09/18 Payer Source: Medicaid Treatment Diagnosis: Left knee pain, LE and trunk weakness, gait difficulty Current Subjective/complaints:: Patient reports he would like to progress to safe ambulation with cane. He has a fear of falls. Reports back pain and LE weakness is limiting him. Pain Assessment - Pain Description Pain Location: left knee and lowback Interventions - Exercise/Activities/Manual Therapy Exercises/Activities: Standing marching and hip abduction. Lateral step-ups onto right LE. Standing reaching and green theraband for scapular retraction. Gait Training in department with straight cane. Frequent cues for increase stride length and correct posture. Worked on cane placement and balanced weight shift. Patient walks 20-25' x 5reps with min assist and over short step 2reps with mod assist. Total minutes of Exercise: EX 15mins/GT 23mins Manual Therapy: NA HOME EXERCISE PROGRAM: NA - Charges Timed Code Treatment Minutes: 38mins Total Treatment Time: 45mins Procedures billed for this date of service:: GTx2, EX Assessment: Patient reporting back pain and quick fatigue with standing and walking. He is motivated to work on strengthening and progress toward safe and independent ambulation with AAD. Patient Education: Home Exercise Program, Home Safety, Activity Modification Patient demonstrates compliance with HEP?: Yes Short Term Goals Goal #1: Patient independent and complaint with basic HEP. Goal to be met by: 02/23/18 Progress towards Goal:: Progressing Goal #2: Standing static balance improved to Fair +. Goal to be met by: 02/23/18 Goal #3: Bilateral hip strength 4+/5. Goal to be met by: 02/23/18 Goal #4: Pt able to ambulate [address] cane and CGA of 1. Goal to be met by: 02/23/18 (100%) Fpc Goals Goal #1: Pt knows HEP and to continue exercises after D/C from therapy. Goal to be met by: 03/23/18 Goal #2: Pt to amb. functional distances with st. cane and good safety. Goal to be met by: 03/23/18 Goal #3: Score on LE functional scale improved to 29/80. Goal to be met by: 03/23/18 Goal #4: Pt able to stand to perform all selfcare and light ADL's as needed. Goal to be met by: 03/23/18 Plan PLAN OF CARE EXPIRES ON:: 03/23/18 ORDER # VISITS AND/OR THROUGH DATE: 03/23/18 PLAN: Progress strengthening and gait training, working toward safe and independent ambulation for functional activities.
--- NOTE | 2018-02-20 15:39 | RS.OPPTDN ---
Subjective Date of Note: 02/20/18 Visit #: 3 Date of Evaluation: 02/09/18 Payer Source: Medicaid Treatment Diagnosis: Left knee pain, LE and trunk weakness, gait difficulty Current Subjective/complaints:: Patient reports his back pain seems to limit him. States he is going to the gym for upper body strengthening, but does not feel like he is making progress. Pain Assessment - Pain Description Pain Location: left knee and lowback Current Pain Intensity: 5/10 left knee, 4/10 back Interventions - Exercise/Activities/Manual Therapy Exercises/Activities: Standing marching and hip abduction. Lateral step-ups onto right LE. Standing reaching, ball toss, chest pass, and green theraband for scapular retraction. Sitting overhead ball toss while sitting on edge of chair for trunk strengthening. Gait Training in department with straight cane. Frequent cues for increase stride length and correct posture. Worked on cane placement and balanced weight shift. Patient walks 20-25' x 5reps with min assist. Gait over short step, increased to 6reps with cane, handrail, and min assist of 1. Total minutes of Exercise: EX 18mins, GT 28mins Manual Therapy: NA HOME EXERCISE PROGRAM: NA - Charges Timed Code Treatment Minutes: 46mins Total Treatment Time: 48mins Procedures billed for this date of service:: EX, GT2 Assessment: Patient progressing with gait, including steps. Patient Education: Home Exercise Program Patient demonstrates compliance with HEP?: Yes Short Term Goals Goal #1: Patient independent and complaint with basic HEP. Goal to be met by: 02/23/18 Progress towards Goal:: Progressing Goal #2: Standing static balance improved to Fair +. Goal to be met by: 02/23/18 Progress towards Goal:: Progressing Goal #3: Bilateral hip strength 4+/5. Goal to be met by: 02/23/18 Goal #4: Pt able to ambulate [address] cane and CGA of 1. Goal to be met by: 02/23/18 (100%) [facility] Goals Goal #1: Pt knows HEP and to continue exercises after D/C from therapy. Goal to be met by: 03/23/18 Goal #2: Pt to amb. functional distances with st. cane and good safety. Goal to be met by: 03/23/18 Goal #3: Score on LE functional scale improved to 29/80. Goal to be met by: 03/23/18 Goal #4: Pt able to stand to perform all selfcare and light ADL's as needed. Goal to be met by: 03/23/18 Plan PLAN OF CARE EXPIRES ON:: 03/23/18 ORDER # VISITS AND/OR THROUGH DATE: 03/23/18 PLAN: Progress with strengthening, balance, and ambulation.
--- NOTE | 2018-02-26 09:06 | RS.OPPTDN ---
Subjective Date of Note: 02/23/18 Visit #: 4 Date of Evaluation: 02/09/18 Payer Source: Medicaid Treatment Diagnosis: Left knee pain, LE and trunk weakness, gait difficulty Current Subjective/complaints:: Patient reports he has tried to practice standing with cane at home. Reports he feels more confident today. Interventions - Exercise/Activities/Manual Therapy Exercises/Activities: Standing marching and hip abduction. Lateral step-ups onto right LE. Standing reaching, ball toss, chest pass, and green theraband for scapular retraction. Standing on foam for balance, then marching. Sitting overhead ball toss while sitting on edge of chair for trunk strengthening. Gait Training in department with straight cane. Frequent cues for increase stride length and correct posture. Worked on cane placement and balanced weight shift. Patient walks 25' x 6reps with min to CGA. Gait over short step with cane and handrail, and min assist of 1, 6reps total. Total minutes of Exercise: GT 29mins, EX 17mins Manual Therapy: NA HOME EXERCISE PROGRAM: NA - Objective Findings Observations,measurements,etc.: Standing weight-shift and marching at kitchen counter - Charges Timed Code Treatment Minutes: 46mins Total Treatment Time: 50mins Procedures billed for this date of service:: GTx2, EX Assessment: Patient progressing with gait and balance activity. Patient Education: Home Exercise Program Patient demonstrates compliance with HEP?: Yes Short Term Goals Goal #1: Patient independent and complaint with basic HEP. Goal to be met by: 02/23/18 Progress towards Goal:: Progressing Goal #2: Standing static balance improved to Fair +. Goal to be met by: 02/23/18 Progress towards Goal:: Progressing Goal #3: Bilateral hip strength 4+/5. Goal to be met by: 02/23/18 Goal #4: Pt able to ambulate [address] cane and CGA of 1. Goal to be met by: 02/23/18 Progress towards Goal:: Progressing Corporate Recruiter Goals Goal #1: Pt knows HEP and to continue exercises after D/C from therapy. Goal to be met by: 03/23/18 Progress towards goal: Progressing Goal #2: Pt to amb. functional distances with st. cane and good safety. Goal to be met by: 03/23/18 Goal #3: Score on LE functional scale improved to 29/80. Goal to be met by: 03/23/18 Goal #4: Pt able to stand to perform all selfcare and light ADL's as needed. Goal to be met by: 03/23/18 Plan PLAN OF CARE EXPIRES ON:: 03/23/18 ORDER # VISITS AND/OR THROUGH DATE: 03/23/18 PLAN: Progress with gait training, strengtheing, and balance work to increase patients functional independence.
--- NOTE | 2018-02-27 11:59 | RS.CXNS ---
Date of scheduled appointment: 02/27/18 Type: Cancel (Patients girlfriend calls to cancel appointment. Reports patient cannot make his appointment today. Will keep his appointment for later this week.)
--- NOTE | 2018-03-01 16:11 | RS.OPPTDN ---
Subjective Date of Note: 03/01/18 Visit #: 5 Date of Evaluation: 02/09/18 Payer Source: Medicaid Treatment Diagnosis: Left knee pain, LE and trunk weakness, gait difficulty Current Subjective/complaints:: Patient reports he feels his LE's are getting stronger. States left knee pain is limiting his mobility. He continues to have a fear of falls due left knee feeling like it will buckle. Pain Assessment - Pain Description Pain Location: Left knee, back Current Pain Intensity: moderate with standing, weight-bearing Interventions - Exercise/Activities/Manual Therapy Exercises/Activities: Standing marching and hip abduction. Lateral step-ups onto right LE. Standing reaching, ball toss, chest pass, and baseball throws. In sitting, blue theraband for left knee ham curl, 4# cuff weight for resist LAQ. Sitting overhead ball toss while sitting on edge of chair for trunk strengthening. Gait Training in department with straight cane. Frequent cues for equal stride, safety with turns, and correct posture. Patient walks 25' x 6reps with min to CGA. Gait over short step with cane and handrail, and min assist of 1, 6reps total. Total minutes of Exercise: EX 22mins, GT 29mins Manual Therapy: NA HOME EXERCISE PROGRAM: NA - Charges Timed Code Treatment Minutes: 51mins Total Treatment Time: 51mins Procedures billed for this date of service:: EX, GTx2 Assessment: Patient demos improvement with gait sequence and increased standing. He will need to continue strengthening to increase his safety and independence with functional mobility and ambulation. Patient Education: Body/Joint mechanics, Home Exercise Program, Activity Modification Patient demonstrates compliance with HEP?: Yes Short Term Goals Goal #1: Patient independent and complaint with basic HEP. Goal to be met by: 02/23/18 Progress towards Goal:: Progressing Goal #2: Standing static balance improved to Fair +. Goal to be met by: 02/23/18 Progress towards Goal:: Progressing Goal #3: Bilateral hip strength 4+/5. Goal to be met by: 02/23/18 Goal #4: Pt able to ambulate [address] cane and CGA of 1. Goal to be met by: 02/23/18 Progress towards Goal:: Progressing Cashier Goals Goal #1: Pt knows HEP and to continue exercises after D/C from therapy. Goal to be met by: 03/23/18 Progress towards goal: Progressing Goal #2: Pt to amb. functional distances with st. cane and good safety. Goal to be met by: 03/23/18 Progress towards goal: Progressing Goal #3: Score on LE functional scale improved to 29/80. Goal to be met by: 03/23/18 Goal #4: Pt able to stand to perform all selfcare and light ADL's as needed. Goal to be met by: 03/23/18 Progress towards goal: Progressing Plan PLAN OF CARE EXPIRES ON:: 03/23/18 ORDER # VISITS AND/OR THROUGH DATE: 03/23/18 PLAN: Progress strengthening and gait activities to increase patients safety and functional independence.
--- NOTE | 2018-03-06 16:24 | RS.OPPTDN ---
Subjective Date of Note: 03/06/18 Visit #: 6 Date of Evaluation: 02/09/18 Payer Source: Medicaid Treatment Diagnosis: Left knee pain, LE and trunk weakness, gait difficulty Current Subjective/complaints:: Patient report he has been walking short distances with cane. States he is feels much stronger and has more confidence. Pain Assessment - Pain Description Pain Location: left knee Current Pain Intensity: moderate Interventions - Exercise/Activities/Manual Therapy Exercises/Activities: Standing marching and hip abduction. Lateral step-ups onto right LE. In sitting, blue theraband for left knee ham curl, increased to 5# cuff weight for resist LAQ. Sitting overhead ball toss while sitting on edge of chair for trunk strengthening. Standing 3# wand overhead flexion, chest passing, and baseball throw to target, all 2s/10reps each. Gait Training in department and in hallway with straight cane. Cues for equal stride, safety with turns, and correct posture. Gait over short step with cane and handrail, and min to CGA of 1, 8reps total. (Greatest distance approx 50') Total minutes of Exercise: EX 27mins, GT 31mins Manual Therapy: NA HOME EXERCISE PROGRAM: NA - Charges Timed Code Treatment Minutes: 58mins Total Treatment Time: 58mins Procedures billed for this date of service:: EXx2, GTx2 Assessment: Patient progressing with standing balance and ambulation with cane. Paitent progressing toward independent gait. Patient Education: Home Exercise Program, Home Safety, Activity Modification Patient demonstrates compliance with HEP?: Yes Short Term Goals Goal #1: Patient independent and complaint with basic HEP. Goal to be met by: 02/23/18 Progress towards Goal:: Partially Met Goal #2: Standing static balance improved to Fair +. Goal to be met by: 02/23/18 Progress towards Goal:: Partially Met Goal #3: Bilateral hip strength 4+/5. Goal to be met by: 02/23/18 Progress towards Goal:: Progressing Goal #4: Pt able to ambulate [address] cane and CGA of 1. Goal to be met by: 02/23/18 Progress towards Goal:: Partially Met Correction Goals Goal #1: Pt knows HEP and to continue exercises after D/C from therapy. Goal to be met by: 03/23/18 Progress towards goal: Progressing Goal #2: Pt to amb. functional distances with st. cane and good safety. Goal to be met by: 03/23/18 Progress towards goal: Progressing Goal #3: Score on LE functional scale improved to 29/80. Goal to be met by: 03/23/18 Goal #4: Pt able to stand to perform all selfcare and light ADL's as needed. Goal to be met by: 03/23/18 Progress towards goal: Progressing Plan PLAN OF CARE EXPIRES ON:: 03/23/18 ORDER # VISITS AND/OR THROUGH DATE: 03/23/18 PLAN: Continue and progress toward safe and independent with ambulation with AAD.
--- NOTE | 2018-03-08 14:55 | RS.CXNS ---
Date of scheduled appointment: 03/08/18 Type: Cancel (Patient called to cancel appointment. Has appointment with his doctor today.)
--- NOTE | 2018-03-12 15:56 | RS.OPPTDN ---
Subjective Date of Note: 03/12/18 Visit #: 7 Date of Evaluation: 02/09/18 Payer Source: Medicaid Treatment Diagnosis: Left knee pain, LE and trunk weakness, gait difficulty Current Subjective/complaints:: Patient reports he would like to walk on treadmill. Pain Assessment - Pain Description Pain Location: left knee, lowback Interventions - Exercise/Activities/Manual Therapy Exercises/Activities: Standing marching and hip abduction. Lateral step-ups onto right LE. Standing 7# wand overhead flexion, chest passing, and baseball throw to target, and overhead passing. Black theraband on wand for resistive scap retraction. Gait Training in department and in hallway with straight cane. Cues for equal stride, safety with turns, and correct posture. Gait over short step with cane and handrail, and CGA of 1. Assisted onto treadmill for slow paced ambulation at 0.5mph, 2sets/1minute, patient works on equal stride length and height. Total minutes of Exercise: GT 32mins, EX 16mins Manual Therapy: NA HOME EXERCISE PROGRAM: NA - Charges Timed Code Treatment Minutes: 48mins Total Treatment Time: 48mins Procedures billed for this date of service:: GTx2, EX Assessment: Patient progressing well with gait training and standing/ strengthening exercises. Patient Education: Body/Joint mechanics, Home Exercise Program Patient demonstrates compliance with HEP?: Yes Short Term Goals Goal #1: Patient independent and complaint with basic HEP. Goal to be met by: 02/23/18 Progress towards Goal:: Met Goal #2: Standing static balance improved to Fair +. Goal to be met by: 02/23/18 Progress towards Goal:: Partially Met Goal #3: Bilateral hip strength 4+/5. Goal to be met by: 02/23/18 Progress towards Goal:: Progressing Goal #4: Pt able to ambulate [address] cane and CGA of 1. Goal to be met by: 02/23/18 Progress towards Goal:: Partially Met Teacher Private Goals Goal #1: Pt knows HEP and to continue exercises after D/C from therapy. Goal to be met by: 03/23/18 Progress towards goal: Progressing Goal #2: Pt to amb. functional distances with st. cane and good safety. Goal to be met by: 03/23/18 Progress towards goal: Progressing Goal #3: Score on LE functional scale improved to 29/80. Goal to be met by: 03/23/18 Goal #4: Pt able to stand to perform all selfcare and light ADL's as needed. Goal to be met by: 03/23/18 Progress towards goal: Progressing Plan PLAN OF CARE EXPIRES ON:: 03/23/18 ORDER # VISITS AND/OR THROUGH DATE: 03/23/18 PLAN: Progress strengthening and gait training, working toward safe and independent.
--- NOTE | 2018-03-15 16:06 | RS.CXNS ---
Date of scheduled appointment: 03/15/18 Type: Cancel (Patient called to say he was still at an appointment with the Hydraulic Jack Adjuster. Reschedules for next week.)
== END 2018-03-17 23:59 ==
DX: Q78.0 Osteogenesis imperfecta (principal); M25.562 Pain in left knee; G89.29 Other chronic pain; R26.9 Unspecified abnormalities of gait and mobility; M62.81 Muscle weakness (generalized)

== ENCOUNTER 2018-03-23 10:16 | Outpatient (RCR) ==
--- NOTE | 2018-03-22 11:58 | RS.CXNS ---
Date of scheduled appointment: 03/22/18 Type: Cancel Reason for Cancel/NS: Patient reschedules. No reason given.
--- NOTE | 2018-03-23 10:56 | RS.OPPTDN ---
Subjective Date of Note: 03/23/18 Visit #: 8 Date of Evaluation: 02/09/18 Payer Source: Medicaid Treatment Diagnosis: Left knee pain, LE and trunk weakness, gait difficulty Current Subjective/complaints:: Patient says he has been able to walk around his nephew's home this week using crutches only. He says he is able to perform more abdominal exercises at the local gym and trying to also lose weight. He does c/o increased pain today in his L knee and low back due to the rain today. He maintains motivation to walk and build strength while also relying on his power chair less and less. Pain Assessment - Pain Description Pain Location: L knee and low back due to recent rain Interventions - Exercise/Activities/Manual Therapy Exercises/Activities: Standing marching and hip abduction. Lateral step-ups onto right LE. Standing 7# wand overhead flexion, chest passing, and baseball throw to target, and overhead passing (standing at railing). Black theraband on wand for resistive scap retraction (sitting). Gait Training in department and in hallway with straight cane. Cues for equal stride, safety with turns, and correct posture. Gait over short step with cane and handrail, and CGA of 1. Patient amb with SC to/from treadmill (30'). Assisted onto treadmill for slow paced ambulation at 0.5mph, 2sets/1minute, patient works on equal stride length and height. Reassessed goals. Total minutes of Exercise: 42 Manual Therapy: NA HOME EXERCISE PROGRAM: NA - Charges Timed Code Treatment Minutes: 42 Total Treatment Time: 42 Procedures billed for this date of service:: ex2, gt1 Assessment: Patient has met all STG at this point and progressing with LTG. He continues to be motivated to amb and is eager to completely abstain from using his power chair. He continues to work at local gym and also actively trying to lose weight to assist with his back pain. Patient Education: Body/Joint mechanics, Home Exercise Program, Home Safety, Education of Plan of Care Patient demonstrates compliance with HEP?: Yes Short Term Goals Goal #1: Patient independent and complaint with basic HEP. Goal to be met by: 02/23/18 Progress towards Goal:: Met Goal #2: Standing static balance improved to Fair +. Goal to be met by: 02/23/18 Progress towards Goal:: Met Comments:: tested today Goal #3: Bilateral hip strength 4+/5. Goal to be met by: 02/23/18 Progress towards Goal:: Met Comments:: measured today Goal #4: Pt able to ambulate [address] cane and CGA of 1. Goal to be met by: 02/23/18 Progress towards Goal:: Met Comments:: patient amb 60' in hallway CGA, then up to 30' in dept using [employer] Cement Loader Goals Goal #1: Pt knows HEP and to continue exercises after D/C from therapy. Goal to be met by: 03/23/18 Progress towards goal: Met Goal #2: Pt to amb. functional distances with st. cane and good safety. Goal to be met by: 03/23/18 Progress towards goal: Progressing Goal #3: Score on LE functional scale improved to 29/80. Goal to be met by: 03/23/18 Progress towards goal: Progressing Goal #4: Pt able to stand to perform all selfcare and light ADL's as needed. Goal to be met by: 03/23/18 Progress towards goal: Progressing Plan PLAN OF CARE EXPIRES ON:: 03/23/18 ORDER # VISITS AND/OR THROUGH DATE: 03/23/18 PLAN: Patient has completed order within given approved time frame. He was encouraged to use HEP/gym daily to maintain and increase his upper and lower body strength.
--- NOTE | 2018-03-27 08:48 | RS.QUICKDC ---
Discharge from PT Date of Discharge: 03/27/18 Number of Visits: 8 Reason for Discharge: Patient progressed well and met 5 of 8 treatment goals. He progressed to walking with cane and crutches at home. He has increased his strength and is going to the gym for trunk strengthening. Patient has completed initial POC. Discharge with HEP.
== END 2018-04-17 23:59 ==
DX: Q78.0 Osteogenesis imperfecta (principal); R26.9 Unspecified abnormalities of gait and mobility; M25.562 Pain in left knee; G89.29 Other chronic pain; M62.81 Muscle weakness (generalized)

== ENCOUNTER 2018-04-15 11:17 | Emergency (ER) ==
[2018-04-15 11:17] VITALS: BMI 42.3
[2018-04-15 11:25] VITALS: BP 143/95; TEMP 98.4
[2018-04-15] MEDS ORDERED: CLEOCIN PO STA (11:26)
--- NOTE | 2018-04-15 11:29 | ED.PDOC ---
General ED Provider: Dr. MARIANO MARROQUIN-ER Chief Complaint: Wound Check Stated Complaint: harshad got this thing on my chin Time Seen by Physician: 11:28 Mode of Arrival: Wheelchair Information Source: Patient Exam Limitations: No limitations Primary Care Provider: MELISSA LEWIS Nursing and Triage Documentation Reviewed and Agree: Yes Does patient meet sepsis criteria?: No System Inflammatory Response Syndrome: Not Applicable Sepsis Protocol: For patient's 13 years and over: Temp is 96.8 and below OR 101 and greater Pulse >90 BPM Resp >20/minute Acutely Altered Mental Status Are patient's symptoms suggestive of a new infection, such as: -Pneumonia -Skin, Soft Tissue -Endocarditis -UTI -Bone, Joint Infection -Implantable Device -Acute Abdominal Infection -Wound Infection -Meningitis -Blood Stream Catheter Infection -Unknown Skin Complaint Exam - Skin Rash/Itching Complaint/Exam Onset/Duration: 2 days Symptoms Are: Still present Initial Severity: Mild Current Severity: Mild Location: chin Potential Exposures: Reports: Unknown Aggravating: Reports: None Alleviating: Reports: None Associated Signs and Symptoms: Denies: Difficulty breathing, Fever, Chills Related History: Similar episode Skin Findings: Present: Papules, Pustules Differential Diagnoses: Impetigo, Other Review of Systems - Review Of Systems Constitutional: Reports: No symptoms Eyes: Reports: No symptoms Ears, Nose, Mouth, Throat: Reports: No symptoms Respiratory: Reports: No symptoms Cardiac: Reports: No symptoms GI: Reports: No symptoms : Reports: No symptoms Musculoskeletal: Reports: No symptoms Skin: Reports: Lumps, Rash Neurological: Reports: No symptoms Endocrine: Reports: No symptoms Hematologic/Lymphatic: Reports: No symptoms All Other Systems: Reviewed and Negative Past Medical History - Past Medical History Previously Healthy: No Endocrine: Reports: None Cardiovascular: Reports: CAD, Hypertension, A-Fib, Other (SVT before on meds ) Respiratory: Reports: None Hematological: Reports: None Gastrointestinal: Reports: None Genitourinary: Reports: None Neuro/Psych: Reports: None Musculoskeletal: Reports: None, Other (RIGHT FEMUR 30 YEARS AGO DUE TO BONE DISEASE) Cancer: Reports: None (RIGHT FEMUR 30 YEARS AGO DONYA TO BONE DISEASE) Other Pertinent Past Medical History: Osteogenesis Imperfecta - Surgical History General Surgical History: Reports: Adenoidectomy (19 yr old), Stent (HEART STINTS X2 2009,2011), Orthopedic ( left knee replacement 2013, then 1/2 left knee replacement 04/2016), Other - Family History Family History: Reports: None - Social History Smoking Status: Former smoker Hx Substance Use: No Alcohol Screening: None - Immunizations Tetanus Shot up to Date: No Physical Exam - Physical Exam Appearance: Well-appearing, No pain distress, Well-nourished Eyes: MEE ENT: Ears normal Neck: Supple Respiratory: Airway patent Cardiovascular: RRR GI/: Soft Musculoskeletal: Normal strength, ROM intact, No edema, No calf tenderness Skin: Warm Neurological: Sensation intact Psychiatric: Affect appropriate, Mood appropriate Critical Care Note - Critical Care Note Total Time (mins): 0 Course - Course Orders, Labs, Meds: Orders Category Date Time Status Clindamycin HCl [Cleocin] MEDS 04/15/18 11:26 Stat 300 mg PO ONCE STA Medications Generic Name Dose Route Start Last Admin Trade Name Freq PRN Reason Stop Dose Admin Clindamycin HCl 300 mg 04/15/18 11:26 Cleocin PO 04/15/18 11:27 ONCE STA Vital Signs: Temp Pulse Resp BP Pulse Ox 04/15/18 11:18 98.4 F 79 20 143/95 H 92 L Departure - Departure Time of Disposition: :29 Disposition: HOME SELF-CARE Discharge Problem: Folliculitis Instructions: Folliculitis (ED) Condition: Good Pt referred to PMD for follow-up: No IPMP verified?: No Additional Instructions: clindamycin 300mg tid x 7 days--warm compresses 10min q 2hrs//f/u wtih pcp in 1- 2 days Allergies/Adverse Reactions: Allergies No Known Allergies Allergy (Verified 04/15/18 11:23) Home Medications: Ambulatory Orders Aspirin [Aspirin Chewable] 81 mg PO DAILYWM 05/15/13 Diltiazem HCl [Cardizem] 90 mg PO BID 05/15/13 Potassium Chloride [K-Dur] 20 meq PO BID 08/10/13 Dronedarone HCl [Multaq] 400 mg PO BID 04/18/14 Carisoprodol [Soma] 250 mg PO BID 07/29/16 Morphine Sulfate [Ms Contin] 20 mg PO Q12HR 03/13/17 Disposition Discussed With: Patient
== END 2018-04-15 11:35 | disposition home or self-care (01) ==
LOC: ED 11:17
DX: L73.9 Follicular disorder, unspecified (principal)
CPT/HCPCS: 99282